=== PATIENT | male | born 1955 | race Caucasian/White ===

== ENCOUNTER 2020-03-15 07:28 | Day surgery (SDC) | payer BC ==
[2020-03-15] MEDS: Sodium Chloride 0.9% 1,000 ML IV SCH (07:49)
[2020-03-15] MEDS ORDERED: Propofol 200 MG/20 ML SDV ONE (07:55)
[2020-03-15] MEDS ORDERED: fentaNYL 100 MCG/2 ML SDV ONE (07:55)
[2020-03-15] MEDS ORDERED: Midazolam 1 MG/ML 2 ML SDV ONE (07:56)
[2020-03-15 11:17] VITALS: BP 135/76; PULSE 71
--- NOTE | 2020-03-15 13:16 | OR ---
DATE OF PROCEDURE: 03/15/2020 SURGEON: Leonel Villegas MD PROCEDURE PERFORMED: Colonoscopy. FINDINGS: Sigmoid colon polyp, approximately 8 mm, completely removed using hot snare wire device. COMPLICATION: None. INNER TUBE INSERTER: None. ANESTHESIA: MAC. PREOPERATIVE DIAGNOSIS: Screening colonoscopy. POSTOPERATIVE DIAGNOSIS: Screening colonoscopy. RISKS: Risks, benefits, alternatives, and limitations including, but not limited to, infection, bleeding, and perforation were explained to the patient and they wished to proceed. We also discussed false positives and false negatives. PROCEDURE IN DETAIL: The patient was placed in left lateral decubitus position. Digital rectal exam was performed without abnormality. Scope was introduced and advanced atraumatically to the ileocecal valve. A photo was taken. The scope was brought back to the ascending, transverse, descending colon, and retroflexed. No evidence of old or new blood. No colitis. No diverticulitis. No abnormalities on retroflexion. The aforementioned polyp was identified and completely removed as described with the wire. Greater than 8 minutes spent removing the scope. Leonel Villegas MD /[id number]
== END 2020-03-15 11:15 | disposition home or self-care (01) ==
LOC: JP.SDS 07:28
PROVIDERS: ATTEND Surgery
DX: Z12.11 Encounter for screening for malignant neoplasm of colon (principal); D12.5 Benign neoplasm of sigmoid colon; J44.9 Chronic obstructive pulmonary disease, unspecified; F17.210 Nicotine dependence, cigarettes, uncomplicated
CPT/HCPCS: 88305; J2250; J2704; J3010; J7030